=== PATIENT | male | born 1980 | race Caucasian/White ===

== ENCOUNTER → 2018-01-31 13:39 | Outpatient (CLI) | payer OTHER, SELFPAY ==
--- NOTE | 2018-01-31 | DI.RAD.S_ITS ---
PROCEDURE: XR LUMBAR SPINE 2-3V INDICATIONS: LEG ISSUES, BACK PAIN TECHNIQUE: 2 views of the lumbar spine were acquired. COMPARISON: None. FINDINGS: Bones: 5 [id number] vertebrae are present. There is normal bony alignment. No vertebral body compression fractures. No suspicious bony lesions. Soft tissues: Overlying bowel gas pattern is normal. No suspicious soft tissue calcifications. IMPRESSION: No trauma found. Moderately severe L5-S1 degenerative disc disease and facet osteoarthritis without subluxation. Dictated by: John Paul Turjillo M.D. on 01/31/2018 at 14:48 Approved by: John Paul Trujillo M.D. on 01/31/2018 at 14:48
--- NOTE | 2018-01-31 | DI.RAD.S_ITS ---
PROCEDURE: XR TIBIA FIBULA RT 2V INDICATIONS: LEG ISSUES, BACK PAIN TECHNIQUE: 2 views of the tibia and fibula were acquired. COMPARISON: None. FINDINGS: Bones: No fractures or dislocations. No suspicious bony lesions. Soft tissues: No suspicious soft tissue calcifications or masses. IMPRESSION: Tibial plateau fracture fixation screws and medial plate noted, no acute trauma found. Dictated by: John Paul Trujillo M.D. on 01/31/2018 at 14:47 Approved by: John Paul Trujillo M.D. on 01/31/2018 at 14:47
== END ==
DX: M51.37 Other intervertebral disc degeneration, lumbosacral region (principal); M54.9 Dorsalgia, unspecified; M47.817 Spondylosis without myelopathy or radiculopathy, lumbosacral region
CPT/HCPCS: 72100; 73590